=== PATIENT | female | born 1955 | race Caucasian/White ===

== ENCOUNTER → 2016-12-14 | Outpatient (CLI) | payer MEDICARE ==
[~2016-12-14] MED LIST: ACETAMINOPHEN PO; ADVAIR 250-501 EACH IH; ASPIRIN81 M1 PO; AUGMENTIN PO; BUSPAR PO; CELEXA20 MG PO; CLEOCIN PO; COMBIVENT INH14.7 GM INH; COMBIVENT MININEB INH; COMBIVENT14.7 GM INH; DEXALANT PO; DIFLUCAN PO; DOXYCYCLINE HY100 M3 PO; FLORINEF ACETA0.1 MG PO; IRON SUPPLEMENT1 TAB PO; KEFLEX500 MG PO; KLONOPIN PO; LEVAQUIN PO; LIPITOR PO; LIPITOR40 MG DOB; LORTAB 5/500 TA1 TA1 PO; LYRICA PO; MEDROL4 MG/DOSE- PO; MOBIC; MULTI-DAY VITAM1 TAB PO; NEBULIZER TREATMENT IH; NEURONTIN PO; PAROXETINE HCL20 MG PO; PERCOCET; PHENERGAN PO; PREDNISONE PO; PREDNISONE10 MG PO; PROAIR HFA8.5 GM; PROZAC PO; TEMAZEPAM PO; VICODIN 5/1 TAB 5/50 PO; VICODIN 5/500 T1 TAB PO; ZITHROMAX PO; ZOFRAN; [UNRECOGNIZED DRUG - OTHER]
--- NOTE | ~2016-12-14 | CT55 ---
[facility] A Service of [facility] RADIOLOGY TEXT RESULTS PATIENT: SEA REAGAN LOCATION: [facility] : 55 UNIT #: [id number] AGE: [address]: Abby Horton MD SEX: F ORDER DR: [id number] [facility] [address] [place], [place] [address] [id number] O MR#: [id number] [facility] #: [id number] NAME: SEA REAGAN. : 1955 SEX: F STUDY DATE/TIME: 12/14/2016 14:52 UNIT: [facility] ROOM: STUDY DESCRIPTION: CT Chest W Con Attending Physician: Abby Horton M.D. Ordering Physician: Abby Horton M.D. Primary Care Physician: Roberto Rosas Jr., M.D. MEDICAL IMAGING REPORT This report is preliminary unless electronic signature is present EXAM CT of the chest with contrast. DATE OF EXAM 12/14/2016 INDICATIONS 61-year-old female with chest pain and shortness of breath for [address] anemia[address] TECHNIQUE [address] scan of the chest was performed following the administration of IV contrast. Coronal and sagittal reformatted images obtained. NOTE: This CT exam was performed with one or more of the following radiation dose reduction techniques: automatic exposure control, adjustment of mA and/or kV according to patient size, and iterative reconstruction. COMPARISON There are no comparison studies available. FINDINGS There is a mild linear scarring or atelectasis within the superior segment of the left lower lobe. Micronodule in the left lower lobe on image 35. Minimal atelectasis/scar in the lung bases. There is no lymphadenopathy or pleural effusion. Limited imaging of the upper abdomen demonstrates a Lap-Band. Cyst in the right kidney. Bone windows demonstrate postop changes of the cervical spine. IMPRESSION 1. There is a stable benign micronodule in the left lower lobe dating back to a CT of the abdomen from 2009. 2. No new nodule or suspicious nodule. 3. No airspace consolidation or lymphadenopathy. [facility] A Service of [facility] RADIOLOGY TEXT RESULTS PATIENT: SEA REAGAN LOCATION: [facility] : 55 UNIT #: [id number] AGE: [address]: Abby Horton MD SEX: F ORDER DR: Dictated by... Prakash Martin M.D. THIS IS AN ELECTRONICALLY VERIFIED REPORT Prakash Martin M.D. at 12/15/2016 5:07 PM SALVATORE/evelia TD: 12/14/2016 18:43 JOB #: [id number] MEDICAL IMAGING REPORT COPY
[2016-12-14 14:31] LABS: POC - CREATININE 0.91 mg/dL (0.44-1.03); POC - GFR >60.0 mL/min (>60)
== END | disposition home or self-care (01) ==
LOC: CCAT 13:11
PROVIDERS: Internal Medicine Hematology
DX: D50.9 Iron deficiency anemia, unspecified (principal); Z87.19 Personal history of other diseases of the digestive system
CPT/HCPCS: 71260; 82565; Q9967

== ENCOUNTER 2017-04-08 09:59 | Emergency (ER) | payer MEDICARE ==
--- NOTE | ~2017-04-08 | US85 ---
[facility] A Service [facility] RADIOLOGY TEXT RESULTS PATIENT: SEA REAGAN LOCATION: [facility] : 55 UNIT #: [id number] AGE: [address]: VELMA LOWE SEX: F ORDER DR: [id number] [place] [address] [id number] E MR#: [id number] Acc #: [id number] NAME: SEA REAGAN. : 1955 SEX: F STUDY DATE/TIME: 04/08/2017 11:17 UNIT: [facility] ROOM: STUDY DESCRIPTION: [facility] Attending Physician: Velma Lowe Aprn Ordering Physician: Velma Lowe Aprn Primary Care Physician: Roberto Rosas Jr., M.D. MEDICAL IMAGING REPORT This report is preliminary unless electronic signature is present. EXAM Unilateral right lower extremity venous Doppler 04/08/2017 HISTORY A 1-day history of right calf pain and recent right knee replacement. TECHNIQUE Venous ultrasound examination of the right lower extremity was performed using grayscale, spectral Doppler and color flow Doppler imaging. FINDINGS The examination is negative. There is no evidence of right lower extremity deep venous thrombus from the groin to the lower calf. Visualized greater saphenous vein is also patent. IMPRESSION Negative examination. No evidence of right lower extremity deep venous thrombosis. Dictated by... Jeyson Pena M.D. THIS IS AN ELECTRONICALLY VERIFIED REPORT Jeyson Pena M.D. at 04/09/2017 10:53 AM TEV/ea TD: 04/08/2017 19:22 JOB #: [id number] MEDICAL IMAGING REPORT [facility] A Service [facility] RADIOLOGY TEXT RESULTS PATIENT: SEA REAGAN LOCATION: [facility] : 55 UNIT #: [id number] AGE: [address]: VELMA LOWE SEX: F ORDER DR: Page 1 of 1
[~2017-04-08 09:59] MED LIST changes: -MOBIC; -PERCOCET; -PROAIR HFA8.5 GM; -ZOFRAN
[2017-04-08] MEDS ORDERED: PERCOCET (10:06)
[2017-04-08] MEDS ORDERED: PROAIR HFA8.5 GM (10:06)
[2017-04-08] MEDS ORDERED: ZOFRAN (10:07)
[2017-04-08] MEDS ORDERED: MOBIC (10:07)
== END 2017-04-08 12:30 | disposition home or self-care (01) ==
LOC: SED 09:59
DX: M79.604 Pain in right leg (principal); J44.9 Chronic obstructive pulmonary disease, unspecified; F17.200 Nicotine dependence, unspecified, uncomplicated; Z88.5 Allergy status to narcotic agent; Z88.8 Allergy status to other drugs, medicaments and biological substances; Z79.899 Other long term (current) drug therapy
CPT/HCPCS: 93971; 99283

== ENCOUNTER → 2017-04-17 | Outpatient (CLI) | payer MEDICARE ==
[~2017-04-17] MED LIST changes: +MOBIC; +PERCOCET; +PROAIR HFA8.5 GM; +ZOFRAN
--- NOTE | ~2017-04-17 | MY26 ---
[facility] A Service [facility] RADIOLOGY TEXT RESULTS PATIENT: SEA REAGAN LOCATION: [facility] : 55 UNIT #: [id number] AGE: [address]: Roberto Rosas MD SEX: F ORDER DR: [id number] [place] [id number] [place], [place] [address] [id number] O MR#: [id number] Acc #: [id number] NAME: SEA REAGAN. : 1955 SEX: F STUDY DATE/TIME: 04/17/2017 11:05 UNIT: [facility] ROOM: STUDY DESCRIPTION: [facility] DIAGNOSTIC W/ CAD BILAT Attending Physician: Roberto Rosas Jr., M.D. Ordering Physician: Roberto Rosas Jr., M.D. Primary Care Physician: Roberto Rosas Jr., M.D. MEDICAL IMAGING REPORT This report is preliminary unless electronic signature is present EXAM Bilateral diagnostic mammogram INDICATIONS Followup bilateral breast masses. PROCEDURE Bilateral CC, MLO and true lateral views obtained on a digital mammography unit. FDA-approved CAD device was utilized. COMPARISON 01/28/2016 FINDINGS Redemonstration of multiple bilateral well circumscribed breast masses. Index masses in the right breast measure 3.5 cm and 3 cm and are unchanged. There is no new or enlarging mass or suspicious calcification. Breasts predominately fat replaced. IMPRESSION Benign bilateral diagnostic mammogram. Recommend patient return to yearly screening mammography. Patients over the age of 40 are entered into a reminder system with target due date for the next mammogram. A result letter will also be sent to the patient. BIRADS: 2 Benign finding. Dictated by... Bebo Goldberg M.D. [facility] A Service [facility] RADIOLOGY TEXT RESULTS PATIENT: SEA REAGAN LOCATION: [facility] : 55 UNIT #: [id number] AGE: [address]: Roberto Rosas MD SEX: F ORDER DR: THIS IS AN ELECTRONICALLY VERIFIED REPORT Bebo Goldberg M.D. at 04/18/2017 7:12 AM Awais TD: 04/17/2017 17:07 JOB #: [id number] MEDICAL IMAGING REPORT Page 1 of 1 COPY
== END | disposition home or self-care (01) ==
LOC: CMAM 10:00
DX: D24.1 Benign neoplasm of right breast (principal); D24.2 Benign neoplasm of left breast; R92.8 Other abnormal and inconclusive findings on diagnostic imaging of breast
CPT/HCPCS: G0204